=== PATIENT | male | born 2005 | race Hispanic/Latino ===

== ENCOUNTER 2023-04-10 17:15 | Emergency (ER) | payer OTHER, SELFPAY ==
[2023-04-10] MEDS ORDERED: Proparacaine 0.5% Opth 15 ML BOT ONE (17:43)
[2023-04-10] MEDS ORDERED: Fluorescein Opthalmic Strip ONE (17:43)
== END 2023-04-10 18:11 | disposition home or self-care (01) ==
LOC: ERS 17:15
DX: H10.9 Unspecified conjunctivitis (principal)
CPT/HCPCS: 99282